=== PATIENT | male | born 1975 | race Caucasian/White ===

== ENCOUNTER 2016-06-06 19:41 | Emergency (ER) | payer MEDICAID ==
[2016-06-06 19:50] VITALS: BP 142/81; PULSE 101; RESP 16; TEMP 98; O2SAT 100
[2016-06-06] MEDS ORDERED: Oxycodone/Acetaminophen 5/325 mg Tab ONE (19:54)
[2016-06-06] MEDS ORDERED: Oxycodone/Acetaminophen 5/325 mg Tab PO STA (19:58)
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
== END 2016-06-06 21:13 | disposition home or self-care (01) ==
LOC: H.ER 19:41
DX: S82.292A Other fracture of shaft of left tibia, initial encounter for closed fracture (principal); W22.8XXA Striking against or struck by other objects, initial encounter; Y93.9 Activity, unspecified